=== PATIENT | female | born 1975 | race African-American/Black ===

== ENCOUNTER 2017-06-10 06:37 | Observation (INO) | payer OTHER ==
[2017-06-07 12:51] LABS: BASOPHILS % 0.6 % (0.0-1.0); EOSINOPHILS # (AUTO) 0.2 (0.0-0.4); EOSINOPHILS % 2.2 % (0.0-6.0); HEMATOCRIT 38.5 % (34.2-44.1); HEMOGLOBIN 12.9 g/dL (12.0-16.0); LYMPHOCYTES # (AUTO) 2.7 (1.0-3.2); LYMPHOCYTES % 40.2 % (18.0-39.1); MEAN CORPUSCULAR HEMOGLOBIN 29.9 pg (28-32); MEAN CORPUSCULAR HGB CONC 33.5 g/dL (31-35); MEAN CORPUSCULAR VOLUME 89.1 fL (81-99); MONOCYTES # (AUTO) 0.5 (0.2-0.8); MONOCYTES % 6.7 % (4.4-11.3); NEUTROPHILS # (AUTO) 3.4 (2.1-6.9); NEUTROPHILS % 50.2 % (38.7-80.0); PLATELET COUNT 279 x10e3/uL (140-360); RED BLOOD COUNT 4.32 x10e6/uL (3.6-5.1); RED CELL DISTRIBUTION WIDTH 13.7 % (11.7-14.4)
[2017-06-07 13:10] LABS: ALANINE AMINOTRANSFERASE 11 IU/L (0-55); ALBUMIN 3.5 g/dL (3.5-5.0); ALBUMIN/GLOBULIN RATIO 0.9 (0.8-2.0); ALKALINE PHOSPHATASE 80 IU/L (40-150); ANION GAP 13.1 mmol/L (8-16); BLOOD UREA NITROGEN 9 mg/dL (7-26); BUN/CREATININE RATIO 11 (6-25); CARBON DIOXIDE 26 mmol/L (22-29); CHLORIDE 107 mmol/L (98-107); CREATININE, SERUM 0.84 mg/dL (0.57-1.11); EST GLOMERULAR FILTRATION RATE > 60 ML/MIN (60-); GLUCOSE 99 mg/dL (74-118); POTASSIUM 4.1 mmol/L (3.5-5.1); SODIUM 142 mmol/L (136-145)
[~2017-06-10] VITALS: Ht 160 cm; Wt 96.6 kg
[~2017-06-10 06:37] MED LIST: AMLODIPINE BESY10 MG PO; CEFOXITIN 1GM/ DEXTROSE 50ML 100 ML IV ONE; FLUOXETINE HCL20 MG PO; HYDROCHLOROTHIA25 MG PO; KEFLEX500 MG PO; LISINOPRIL10 MG PO; METRONIDAZOLE500 MG PO; NICODERM CQ1 EAC1 TOP; PRAZOSIN HCL2 MG PO; TRAZODONE HCL50 MG PO; TYLENOL WITH C1 EACH PO; ZOFRAN ODT4 MG PO
[2017-06-10] MEDS ORDERED: BUPIVACAINE HCL 0.5% INJ 30 ML VIAL INJ ONE (08:04)
[2017-06-10] MEDS ORDERED: HYDROMORPHONE 0.2MG/ML-SOD CHL 30ML PCA SYRINGE IV PRN (10:00)
[2017-06-10] MEDS ORDERED: ONDANSETRON HCL INJ 2 MG/ML VIAL IV PRN (10:00)
[2017-06-10] MEDS ORDERED: NALOXONE HCL INJ 0.4 MG/ML AMP IV PRN (10:00)
[2017-06-10] MEDS ORDERED: KETOROLAC TROMETHAMINE 30 MG/ML VIAL IM PRN (10:00)
--- NOTE | 2017-06-10 10:03 | Discharge Summary ---
DONALD DICTJOSHUA, LENGTH 5 SECONDS DIMA JO MD Job#: [id number]
[2017-06-10] MEDS ORDERED: HYDROMORPHONE 0.2MG/ML-SOD CHL 30ML PCA SYRINGE IV ONE (10:25)
[2017-06-10] MEDS ORDERED: LISINOPRIL 20 MG TAB PO SCH ×2 (11:00→17:00)
--- NOTE | 2017-06-10 11:05 | Operative Report ---
DATE OF PROCEDURE: June 10, 2017 PREOPERATIVE DIAGNOSIS: A 41-year-old female, 6, para 3, suffering from chronic pelvic pain; heavy, frequent, painful periods; fibroid uterus. POSTOPERATIVE DIAGNOSES 1. A 41-year-old female, 6, para 3, suffering from chronic pelvic pain; heavy, frequent, painful periods; fibroid uterus. 2. Chronic pelvic inflammatory disease. 3. Right hydrosalpinx. 4. Pelvic adhesions. SURGICAL PROCEDURES 1. Examination under anesthesia. 2. Total abdominal hysterectomy. 3. Bilateral salpingo-oophorectomy. [employer] WORKER: Dr. Farmer FINDINGS AT THE TIME SURGERY: On EUA, the cervix looks normal. The uterus is enlarged, about 12 weeks' size. No adnexal masses felt. On laparotomy, there is a large fibroid coming from the right fundal and sidewall of the uterus, about 5 to 6 cm in size, subserous, protruding out under the right hydrosalpinx. The whole right side is covered with adhesions to omentum, but both ovaries look normal. The pelvic congestion is suggestive of chronic pelvic inflammatory disease. The uterus is enlarged, about 12 weeks' size. The cul-de-sac looks normal, no adhesions. ESTIMATED BLOOD LOSS: Around 100 mL. URINE: Clear in the James bag. PROCEDURE IN DETAIL: The patient was brought to the operating room and put in the supine position, and general anesthesia was given without any problems. After adequate anesthesia, the patient was examined under anesthesia. The findings are as dictated above. The cervix looks normal. The uterus is about 12 weeks' size. No adnexal mass is felt. She was prepped and draped in routine fashion, and we proceeded with the surgery. We made a low transverse Pfannenstiel skin incision taken down to the fascia. The fascia was opened in a transverse fashion. The rectus muscles were longitudinally. I identified the parietal peritoneum, opened, and entered the abdominal cavity without any problems. The tissues were very vascular, oozing everywhere you touch. After entering the abdominal cavity, we explored. The uterus was enlarged. Both tubes look inflamed. The right one has hydrosalpinx. There is a large fibroid, about 6 cm size, protruding the right fundal area on the right sidewall of the uterus. That was covered with adhesions with omentum. Then the O'Cxvjro-X-Rgxhizmg retractor was placed in the incision for better exposure and to pack the bowels up and put in upper blade and lower blade. We then proceeded with the surgery. the adhesion on the right side using the LigaSure. Then the round ligament on either side was clamped, cauterized and cut. Then the infundibulopelvic ligament on either side was clamped, coagulated twice and then cut using the LigaSure. Had to take 2 bites on each side. Then I dissected the bladder flap at the peritoneum and opened the peritoneum in the midline and extended up to the stumps of the round ligaments and pushed down the bladder with sharp dissection. The bladder went down very well easily with no problems. Posteriorly, the peritoneum was dissected . Then the uterine vessels were clamped with a LigaSure, cauterized 3 times, and then cut. Had to take 2 bites because of the varicosities. Then we were all the way down to the cardinal ligaments. We pushed down the bladder some more. The bladder went down very well posteriorly. The ureters were far away. We used straight Isabella clamps and clamped close to the cervix, cut towards the cervix and suture ligatured using 1-0 Vicryl. Suture tied snug and cut short. Had to take 3 bites on either side because the cervix was elongated. Then we were all the way up to the angle of the vagina. The bladder was pushed down somewhat. We then applied the right-angle clamps on either side, cut towards the cervix. We were into the vagina, then cut all around and removed the uterus all around the vagina and removed the uterus along with the tubes and ovaries. The stumps were suture ligatured using 1-0 Vicryl with a transfixation suture. The suture was tied snug and held along with a hemostat. The rest of the vaginal wall was closed with figure-of-8 stitches. Hemostasis was satisfactory. We then checked all the stumps, and hemostasis looked good. After making sure the hemostasis was good, all the stumps were cut short. The right ovary is attached to the uterus, but the left ovary had to be cut out because it was obstructing the vision, but all the tissue was sent for the pathology. After making sure all the hemostasis is good, all the laps were removed. The O'Ivkvcw-I-Qsgftxss retractor was removed. We closed the abdominal wall in layers. The fascia was closed. We injected Marcaine 0.5%, about 30 mL, into the muscle and into the fascia. The fascia was approximated with #1 Vicryl using 2 sutures, starting at the corners and ending in the midline. The subcutaneous tissue was approximated with 2-0 Vicryl with continuous stitches. The skin was approximated with subcuticular stitches using 4-0 Vicryl. The patient tolerated the procedure well. There were no complications. Estimated blood loss around 100 mL. Urine was clear in the James bag. The patient was moved to the recovery room in stable condition. Job#: [id number]
[2017-06-10 12:20] VITALS: BP 117/89
[2017-06-10 12:30] VITALS: BP 117/89
[2017-06-10] MEDS ORDERED: METOCLOPRAMIDE HCL 10 MG/2ML VIAL IV PRN (12:45)
[2017-06-10] MEDS ORDERED: DIPHENHYDRAMINE HCL INJ 50 MG/ML VIAL IM PRN (12:45)
[2017-06-10] MEDS ORDERED: DIPHENHYDRAMINE HCL 25 MG CAP PO PRN (12:45)
[2017-06-10] MEDS: DEXTROSE 5%/LACTATED RINGERS 1,000 ML IV SCH ×3 (13:56→23:52)
[2017-06-10] MEDS: CEFOXITIN 2GM/ D5W 50ML 50 ML IV SCH ×2 (14:28→19:47)
[2017-06-10 15:37] VITALS: BP 137/100
[2017-06-10 16:07] VITALS: BP 137/100
[2017-06-10] MEDS ORDERED: MIDAZOLAM HCL 2 MG/2 ML VIAL ONE (19:20)
[2017-06-10] MEDS ORDERED: MORPHINE SULFATE INJ 10 MG/ML ONE (19:20)
[2017-06-10] MEDS ORDERED: FENTANYL CITRATE/PF 100MCG/2 ML INJ ONE (19:20)
[2017-06-10] MEDS ORDERED: ONDANSETRON HCL INJ 2 MG/ML VIAL ONE (19:28)
[2017-06-10] MEDS ORDERED: PROPOFOL IV EMULSION 10 MG/ML 20 ML VIAL ONE (19:28)
[2017-06-10] MEDS ORDERED: DEXAMETHASONE SOD PHOS INJ 4 MG/ML VIAL ONE (19:28)
[2017-06-10] MEDS ORDERED: SEVOFLURANE INHAL SOLN 250 ML PEN BTL ONE (19:28)
[2017-06-10] MEDS ORDERED: LIDOCAINE HCL 2% LOCAL INJ 5 ML SDV VIAL INJ ONE (19:28)
[2017-06-10] MEDS ORDERED: ATROPINE SULFATE 1 MG/ML VIAL ONE (19:28)
[2017-06-10] MEDS ORDERED: ACETAMINOPHEN 1000 MG/100 ML IV ONE (19:28)
[2017-06-10] MEDS ORDERED: NEOSTIGMINE 5 MG/5ML SYR ONE (19:28)
[2017-06-10] MEDS ORDERED: EPHEDRINE SULFATE INJ 50 MG/10 ML SYR ONE (19:28)
[2017-06-10] MEDS ORDERED: ROCURONIUM BROMIDE 10 MG/ML 5ML VIAL ONE (19:28)
[2017-06-10] MEDS ORDERED: GLYCOPYRROLATE INJ 1MG/ 5 ML SYR ONE (19:28)
[2017-06-10] MEDS: KETOROLAC TROMETHAMINE 30 MG/ML VIAL IM PRN (19:47)
[2017-06-10 20:00] VITALS: BP 136/83
[2017-06-10] MEDS ORDERED: TRAZODONE HCL 50 MG TAB PO SCH ×2 (21:00→22:10)
[2017-06-11] VITALS: BP 126/79
[2017-06-11] MEDS: CEFOXITIN 2GM/ D5W 50ML 50 ML IV SCH ×3 (03:16→13:20)
[2017-06-11] MEDS: DEXTROSE 5%/LACTATED RINGERS 1,000 ML IV SCH (03:24)
[2017-06-11] MEDS: KETOROLAC TROMETHAMINE 30 MG/ML VIAL IM PRN (03:25)
[2017-06-11 04:00] VITALS: BP 135/86
[2017-06-11 04:02] VITALS: BP 126/79
[2017-06-11] MEDS ORDERED: ACETAMINOPHEN 325 MG TAB PO PRN (06:00)
[2017-06-11 06:47] LABS: BASOPHILS % 0.2 % (0.0-1.0); EOSINOPHILS % 0.2 % (0.0-6.0); HEMATOCRIT 35.4 % (34.2-44.1); HEMOGLOBIN 11.9 g/dL (12.0-16.0); LYMPHOCYTES % 28.4 % (18.0-39.1); MEAN CORPUSCULAR HEMOGLOBIN 29.5 pg (28-32); MEAN CORPUSCULAR HGB CONC 33.6 g/dL (31-35); MEAN CORPUSCULAR VOLUME 87.6 fL (81-99); MONOCYTES # (AUTO) 0.8 (0.2-0.8); NEUTROPHILS # (AUTO) 6.6 (2.1-6.9); NEUTROPHILS % 62.9 % (38.7-80.0); PLATELET COUNT 254 x10e3/uL (140-360); RED BLOOD COUNT 4.04 x10e6/uL (3.6-5.1)
[2017-06-11 07:15] LABS: ALANINE AMINOTRANSFERASE 11 IU/L (0-55); ALBUMIN 2.9 g/dL (3.5-5.0); ALBUMIN/GLOBULIN RATIO 0.9 (0.8-2.0); ALKALINE PHOSPHATASE 68 IU/L (40-150); ANION GAP 11.3 mmol/L (8-16); BLOOD UREA NITROGEN 5 mg/dL (7-26); BUN/CREATININE RATIO 6 (6-25); CALCIUM 8.8 mg/dL (8.4-10.2); CARBON DIOXIDE 27 mmol/L (22-29); CHLORIDE 105 mmol/L (98-107); CREATININE, SERUM 0.83 mg/dL (0.57-1.11); EST GLOMERULAR FILTRATION RATE > 60 ML/MIN (60-); GLUCOSE 123 mg/dL (74-118); POTASSIUM 3.3 mmol/L (3.5-5.1); SODIUM 140 mmol/L (136-145)
[2017-06-11 08:25] VITALS: BP 115/61
[2017-06-11] MEDS ORDERED: HYDROCHLOROTHIAZIDE 25 MG TAB PO SCH (09:00)
[2017-06-11] MEDS ORDERED: FLUOXETINE HCL 20 MG CAP PO SCH (09:00)
[2017-06-11] MEDS ORDERED: AMLODIPINE BESYLATE 10 MG TAB PO SCH (09:00)
[2017-06-11] MEDS ORDERED: LISINOPRIL 10 MG TAB PO SCH (09:00)
[2017-06-11] MEDS: DOCUSATE SODIUM 100 MG CAP PO SCH ×2 (09:30→16:09)
[2017-06-11] MEDS ORDERED: HYDROCODONE/APAP 5MG-325MG TAB PO PRN (11:30)
[2017-06-11] MEDS ORDERED: IBUPROFEN 600 MG TAB PO PRN (11:30)
[2017-06-11] MEDS ORDERED: POTASSIUM CHLORIDE 20 MEQ TAB CR PO ONE (12:00)
[2017-06-11 12:30] VITALS: BP 120/65
[2017-06-11] MEDS ORDERED: MOTRIN800 MG (15:05)
[2017-06-11] MEDS ORDERED: DOXYCYCLINE HY100 MG PO (15:06)
[2017-06-11] MEDS ORDERED: SURFAK240 MG (15:07)
[2017-06-11] MEDS ORDERED: HEMOCYTE PLUS1 EACH (15:07)
[2017-06-11 16:39] VITALS: BP 135/83
== END 2017-06-11 16:25 | disposition home or self-care (01) ==
LOC: OR 06:37 → IMCU 10:47 → UNDOADMOB 10:47 → IMCU 11:15
PROVIDERS: ADMIT Specialist; ATTEND Specialist
DX: N92.0 Excessive and frequent menstruation with regular cycle (principal); N80.0 Endometriosis of uterus; D26.1 Other benign neoplasm of corpus uteri; D27.0 Benign neoplasm of right ovary; N70.11 Chronic salpingitis; N73.6 Female pelvic peritoneal adhesions (postinfective); N94.6 Dysmenorrhea, unspecified; N73.1 Chronic parametritis and pelvic cellulitis; R10.2 Pelvic and perineal pain; I10 Essential (primary) hypertension; F41.8 Other specified anxiety disorders; Z01.810 Encounter for preprocedural cardiovascular examination; Z01.812 Encounter for preprocedural laboratory examination; N83.01 Follicular cyst of right ovary; N83.02 Follicular cyst of left ovary
CPT/HCPCS: 36415 ×2; 58150; 80053 ×2; 81025; 85025 ×2; 86850; 86900; 88307; 93005; G0378 ×2; J0461; J0694 ×2; J1100; J1885 ×2; J2001; J2250; J2270; J2405; J7120